=== PATIENT | female | born 1980 | race Caucasian/White ===

== ENCOUNTER 2018-03-31 09:20 | Emergency (ER) | payer OTHER ==
[~2018-03-31] VITALS: Ht 160 cm; Wt 112.5 kg
[~2018-03-31 09:20] MED LIST: APAP/HYDROCODON1 T13 PO; CLINDAMYCIN HC300 MG PO; COL100 PO; COLACE100 MG PO; IBU800 M1 PO; LAC PO; LEVAQUIN750 MG PO; MAC100 PO; MOTRIN800 MG PO; NORCO1 TA2 PO; PRI20 PO
[2018-03-31 09:42] VITALS: Ht 160 cm; Wt 112.5 kg
[2018-03-31 11:22] LABS: BASOPHIL % 0.3 % (0-2); PLATELET COUNT 288 x10^3mcL (130-400)
[2018-03-31 11:33] LABS: CALCIUM 8.7 mg/dL (8.5-10.1); CARBON DIOXIDE 31.3 mmol/L (21-32); CHLORIDE SERUM 104 mmol/L (98-107); CREATININE SERUM 0.6 mg/dL (0.6-1.0); GFR1 > 60 mL/min; GLUCOSE SERUM 91 mg/dL (74-106); SODIUM SERUM 139 mmol/L (136-145)
[2018-03-31 11:38] LABS: ALBUMIN 3.7 g/dL (3.4-5.0); ALKALINE PHOSPHATASE 78 U/L (46-116); ALT/SGPT 25 U/L (14-59); AMYLASE 46 U/L (25-115); AST/SGOT 17 U/L (15-37); BILIRUBIN TOTAL 0.6 mg/dL (0.20-1.00); LIPASE 117 IU/L (73-393); TOTAL PROTEIN, SERUM 7.7 g/dL (6.4-8.2)
[2018-03-31 13:51] VITALS: BP 121/78
== END 2018-03-31 13:51 | disposition home or self-care (01) ==
LOC: ED 09:20
PROVIDERS: Emergency Medicine
DX: N83.202 Unspecified ovarian cyst, left side (principal)
CPT/HCPCS: 36415; 83880

== ENCOUNTER 2019-04-11 22:10 | Emergency (ER) | payer OTHER ==
[~2019-04-11] VITALS: Ht 160 cm; Wt 114.8 kg
[~2019-04-11 22:10] MED LIST changes: +ASPIRIN ADULT L81 M5 PO; +FLO4 PO; +SYNTHROID0.088 MG PO
[2019-04-11 22:14] VITALS: Ht 160 cm; Wt 114.8 kg
[2019-04-11 23:41] VITALS: BP 115/73
== END 2019-04-11 23:41 | disposition home or self-care (01) ==
LOC: ED 22:10
DX: M79.604 Pain in right leg (principal); E03.9 Hypothyroidism, unspecified
CPT/HCPCS: J1885